=== PATIENT | male | born 1980 ===

== ENCOUNTER 2019-08-02 20:17 | Emergency (ER) | payer SELFPAY ==
[2019-08-02] MEDS ORDERED: Acetaminophen 500 MG TAB ONE (21:03)
[2019-08-02] MEDS ORDERED: Ibuprofen 800 MG TAB ONE (21:03)
--- NOTE | 2019-08-02 21:16 | RAD ---
EXAM: Chest Two Views 08/02/2019 9:13 PM HISTORY: Cough fever and headache COMPARISON: None. FINDINGS: Heart: Normal in size and contour. Pulmonary vessels: Normal. Costophrenic angles: Clear. Lungs: There is airspace opacity in left upper lobe suspicious for developing pneumonia. Pneumothorax: None. Osseous structures:Intact. Additional findings: None. IMPRESSION: Left upper lobe pneumonia. Recommend radiographic follow-up to resolution.
[2019-08-02] MEDS ORDERED: Doxycycline 100 MG CAP PO SCH (22:15)
== END 2019-08-02 22:59 | disposition home or self-care (01) ==
LOC: ERS 20:17
DX: J18.9 Pneumonia, unspecified organism (principal)
CPT/HCPCS: 71046; 87804